=== PATIENT | female | born 1980 | race American Indian/Alaskan Native ===

== ENCOUNTER 2017-04-27 06:10 | Day surgery (SDC) | payer OTHER ==
--- NOTE | 2017-04-26 13:30 | History and Physical Report ---
History of Present Illness Date of examination: 04/25/17 Date of admission: 04/27/2017 History of present illness: Patient has been reassessed/reevaluate. H&P has been reviewed. No interval changes. This is a 36 years old female who presents with history cervical incompentence presents for cervical cerclage placement Vital Signs Height: 64.0 in. Weight (lb): 158 BMI: 27.2 Pre- Weight: 158 BP: 120/ 60 mm Hg Menstrual History Regularity: regular Menses every: 28 days Duration: 5 LMP: 01/02/2017 LMP reliability: month known LMP character: normal test type: urine test Date: 03/30/2017 BC at conception: none Planned ? no EDC Calculations LMP: 10/09/2017 EDC Confirmation: 10/30/2017 Past History : 5 Term Births: 1 Premature Births: 1 Living Children: 2 Para: 2 Mult. Births: 0 Prev : 0 Aborta: 2 Elect. Ab: 0 Spont. Ab: 2 Ectopics: 0 # 1 Delivery date: 2004 Weeks Gestation: 12 ? Delivery type: SAB # 2 Delivery date: 12/14/2008 Weeks Gestation: 39 Delivery type: Vaginal Anesthesia type: epidural Delivery location: [facility] Infant Sex: female weight: 2274 Comments: intrauterine growth restriction, shortened cervix # 3 Delivery date: 05/17/2011 Weeks Gestation: 31 Delivery type: Anesthesia type: epidural Delivery location: [facility] Sex: female weight: 3-7 Comments: T - extension of uterine incision breech presentation, incompetent cervix, rupture of membranes # 4 Delivery date: 10/2016 Weeks Gestation: 8 Delivery type: SAB Comments: No D&C done Past Medical History: Incompetent cervix Past Surgical History: (2010) Cervical cerclage (2010) Family History Summary: denies h/o Diabetes or HTN No Family History of Breast Cancer No Family History of Colon Cancer No Family History of Ovarvian Cancer No Family History of DVT/PE on OCP 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 Risk Factors: Smoked Tobacco Use: Never smoker Drug use: no HIV high-risk behavior: low risk Alcohol use: no Past Medical History 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) Cervical cerclage (2010) Abnormal PAP: negative MARY Exposure: negative Infertility: negative Uterine Anomaly: negative Uterine Surgery (not C/S): negative Other Gynecologic Problems: negative Social Hx: Patient is homemaker Infection History Hx of STD: none HIV Risk Eval: low risk Hepatitis B Risk Eval: low risk Genetic History ADVANCED MATERNAL AGE Congenital Heart Defect: Mom: no Dad: no Mishel Disease: Mom: no Dad: no Thalassemia Mom: no Dad: no Neural Tube Defect Mom: no Dad: no Down's Syndrome Mom: no Dad: no Kvng-Sachs Mom: no Dad: no Sickle Cell Disease/Trait Mom: no Dad: no Hemophilia Mom: no Dad: no Muscular Dystrophy Mom: no Dad: no Cystic Fibrosis Mom: no Dad: no Kasi Chorea Mom: no Dad: no Mental Retardation Mom: no Dad: no Fragile X Mom: no Dad: no Other Genetic/Chromosomal Disorder Mom: no Dad: no Child w/other defect Mom: no Dad: no Current Allergies (reviewed today): No known allergies Laboratory Results General Complains of fatigue. Denies fever, chills, sweats, anorexia, weakness, malaise, weight loss and sleep disorder. Complains of pelvic pain. Denies vaginal discharge, incontinence, dysuria, hematuria, urinary frequency, amenorrhea, menorrhagia, abnormal vaginal bleeding, genital sores, decreased libido, painful periods, painful sex, urinary urgency, hot flashes, vaginal dryness, vaginal itching and vaginal odor. CV Denies chest pains, palpitations, syncope, dyspnea on exertion, orthopnea, PND and peripheral edema. Resp Denies cough, dyspnea at rest, excessive sputum, hemoptysis, wheezing and pleurisy. GI Complains of indigestion/heartburn. Denies nausea, vomiting, diarrhea, constipation, change in bowel habits, abdominal pain, melena, hematochezia, jaundice, gas/bloating, dysphagia and odynophagia. Breast Complains of breast pain. Denies left breast lump, right breast lump, nipple discharge, bloody discharge from nipple, abnormal mammogram and breast enlargement. Psych Denies depression, anxiety, irritability and mood swings. Past History Past Medical History: other (See HPI) Past Surgical History: , Other (See HPI) Social history: full code (See HPI) Family history: other (See HPI) Medications and Allergies Allergies Allergy/AdvReac Type Severity Reaction Status Date / Time No Known Allergies Allergy Unverified 04/27/17 07:04 Review of Systems Constitutional: other (See HPI) Exam - Physical Exam Narrative exam: HEENT: normocephalic, no lesions or deformities Neck/Thyroid: supple, thyroid normal Skin no ulcers, xanthomas Chest: respiratory effort normal, clear to auscultation Breasts: skin/areolae normal, no masses, no nipple discharge, no erythema/warmth /tenderness, and axillae normal. 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 No evidence of cystocele or rectocele. Cervix: normal appearance, no lesions, no discharge Uterus: enlarged 14 to 16 weeks in size Adnexae: no masses or tenderness Rectovaginal: exam defered Results - Labs CBC & Chem 7: 04/27/17 06:35 Assessment and Plan - Patient Problems (1) Incompetent cervix in Current Visit: Yes Status: Acute Qualifiers: Trimester: T Plan to address problem: Indications for and description of the procedure given. Questions answered. Patient agrees to proceed with cerclage Discussed the risks of bleeding, infection, possible rupture of membrane, possible damage to bladder and bowel.Indications for and description of the procedure given. Questions answered. Patient agrees to proceed. (2) with 13 completed weeks gestation Current Visit: Yes Status: Acute (3) Advanced maternal age (AMA) in Current Visit: Yes Status: Acute (4) Uterine scar from previous delivery affecting Current Visit: Yes Status: Chronic
[2017-04-27] MEDS: LACTATED RINGERS 1,000 ML IV SCH ×2 (06:35→07:40)
[2017-04-27 06:48] LABS: Hematocrit 33.8 % (30.3-42.9); Hemoglobin 11.6 gm/dl (10.1-14.3)
[2017-04-27] MEDS ORDERED: ZOFRAN IV PRN (07:22)
[2017-04-27] MEDS ORDERED: NARCAN 0.4 MG/1 ML IV PRN (07:22)
--- NOTE | 2017-04-27 07:22 | Anesthesia Day of Surgery ---
Anesthesia Day of Surgery - Day of Surgery Patient Examined: Yes Patient H&P Reviewed: Yes Patient is NPO: Yes
--- NOTE | 2017-04-27 07:22 | Anesthesia Consultation ---
Anesthesia Consult and Med Hx Date of service: 04/27/17 - Airway Anesthetic Teeth Evaluation: Good ROM Head & Neck: Adequate Mental/Hyoid Distance: Adequate Mallampati Class: Class II Intubation Access Assessment: Probably Good - Pre-Operative Health Status ASA Pre-Surgery Classification: ASA2 Proposed Anesthetic Plan: Spinal - Pulmonary Hx Asthma: No COPD: No Hx Pneumonia: No - Cardiovascular System Hx Hypertension: No - Central Nervous System Hx Seizures: No Hx Psychiatric Problems: No - Endocrine Hx Renal Disease: No Hx End Stage Renal Disease: No Hx Hypothyroidism: No Hx Hyperthyroidism: No - Hematic Hx Anemia: No Hx Sickle Cell Disease: No - Other Systems Hx Alcohol Use: No
[2017-04-27] MEDS ORDERED: SODIUM CHLORIDE FLUSH SYRINGE 10 ML IV NR (08:00)
[2017-04-27] MEDS ORDERED: TORADOL IV PRN (08:00)
[2017-04-27] MEDS ORDERED: REGLAN IV ONE (08:00)
[2017-04-27] MEDS ORDERED: PEPCID IV ONE (08:00)
[2017-04-27] MEDS ORDERED: WATER FOR IRRIG STERILE IR ONE (08:09)
--- NOTE | 2017-04-27 08:33 | Operative Report ---
Operative Report Operative Report: Date of procedure: 04/27/2017 Pre-operative diagnosis: Incompetent cervix Post-operative diagnosis: Same Procedure name(s): Tamika cervical cerclage Surgeon: Lj Jones MD Safety Spec: Anesthesia: Spinal EBL: Minimal Complications: None Findings: Cervix approximately 3-1/2-4 cm in length cervix was closed Specimen(s): None Procedure: Patient was brought to the operating room where spinal anesthesia was induced without difficulty. [facility] Patient was prepped and draped in usual sterile manner. Bladder was emptied with a red rubber catheter. Weighted speculum was placed in her vagina. The sugar laboratory assistant retracted the bladder anteriorly. Her cervical exam as noted above. Mersilene tape was used. Starting at 1:00 the first stitch of the cerclage was placed in pursestring fashion. With the knot tied at 1:00 under moderate distress with no evidence of rupture of amniotic sac. A second stitch was placed in similar fashion slightly distal to the first. The cervix was hemostatic nourished menstrual removed. The patient was counseled to recovery room in good condition. Instrument count correct 2.
[2017-04-27 11:23] VITALS: BP 89/59
[2017-04-27] MEDS ORDERED: TYLENOL #3 PO ONE (13:22)
== END 2017-04-27 14:38 | disposition home or self-care (01) ==
LOC: LDOR 06:10 → APU 06:17 → LDOR 14:38
PROVIDERS: ATTEND Obstetrics & Gynecology
DX: N88.3 Incompetence of cervix uteri (principal); Z98.890 Other specified postprocedural states
CPT/HCPCS: 36415; 57700; 85014; 85018; J2765; J7120

== ENCOUNTER 2017-09-29 10:13 | Inpatient (IN) | payer OTHER ==
--- NOTE | 2017-09-29 10:30 | History and Physical Report ---
History of Present Illness Date of examination: 09/29/17 Chief complaint: Patient sent from [facility] for admission d/t elevated b/p and IUGR @ 35+4 weeks History of present illness: EDC Confirmation: 10/30/2017 Past History : 5 Term Births: 1 Premature Births: 1 Living Children: 2 Para: 2 Mult. Births: 0 Prev : 0 Aborta: 2 Elect. Ab: 0 Spont. Ab: 2 Ectopics: 0 # 1 Delivery date: 2004 Weeks Gestation: 12 ? Delivery type: SAB # 2 Delivery date: 12/14/2008 Weeks Gestation: 39 Delivery type: Vaginal Anesthesia type: epidural Delivery location: [facility] Infant Sex: female weight: 2274 Comments: intrauterine growth restriction, shortened cervix # 3 Delivery date: 05/17/2011 Weeks Gestation: 31 Delivery type: Anesthesia type: epidural Delivery location: [facility] Infant Sex: female weight: 3-7 Comments: T - extension of uterine incision breech presentation, incompetent cervix, rupture of membranes # 4 Delivery date: 10/2016 Weeks Gestation: 8 Delivery type: SAB Comments: No D&C done Past Medical History: Incompetent cervix Past Surgical History: (2010) Cervical cerclage (2010) Family History Summary: Reviewed history Last on 11/10/2014 and no changes required:03/30/2017 General Comments - FH: None denies h/o Diabetes of HTN No Family History of Breast Cancer No Family History of Colon Cancer No Family History of Ovarvian Cancer No Family History of DVT/PE on OCP 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 Risk Factors: Smoked Tobacco Use: Never smoker Drug use: no HIV high-risk behavior: low risk Alcohol use: no Past Medical History 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) Cervical cerclage (2010) Abnormal PAP: negative MARY Exposure: negative Infertility: negative Uterine Anomaly: negative Uterine Surgery (not C/S): negative Other Gynecologic Problems: negative Social Hx: Patient is homemaker Infection History Hx of STD: none HIV Risk Eval: low risk Hepatitis B Risk Eval: low risk Genetic History ADVANCED MATERNAL AGE Congenital Heart Defect: Mom: no Dad: no Mishel Disease: Mom: no Dad: no Thalassemia Mom: no Dad: no Neural Tube Defect Mom: no Dad: no Down's Syndrome Mom: no Dad: no Kvng-Sachs Mom: no Dad: no Sickle Cell Disease/Trait Mom: no Dad: no Hemophilia Mom: no Dad: no Muscular Dystrophy Mom: no Dad: no Cystic Fibrosis Mom: no Dad: no [place] Chorea Mom: no Dad: no Mental Retardation Mom: no Dad: no Fragile X Mom: no Dad: no Other Genetic/Chromosomal Disorder Mom: no Dad: no Child w/other defect Mom: no Dad: no Active Medications: IBUPROFEN 800 MG TABS (IBUPROFEN) 1 po q6 hr prn pain DEPO-PROVERA 150 MG/ML IM SUSP (MEDROXYPROGESTERONE ACETATE) 1 IM injection q3 months Current Allergies (reviewed today): No known allergies Past History Past Medical History: other (see HPI) Past Surgical History: other (See HPI) 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 (treated previously) - Obstetrical History Expected Date of Delivery: 10/30/17 Actual Gestation: 35 Week(s) 4 Day(s) : 5 Para: 2 Hx # Term Pregnancies: 1 Number of Pregnancies: 1 Spontaneous Abortions: 2 Induced : 0 Number of Living Children: 2 Medications and Allergies Allergies Allergy/AdvReac Type Severity Reaction Status Date / Time No Known Allergies Allergy Verified 09/29/17 11:12 Review of Systems All systems: negative (No ISSA, visual changes or epigastric pain.) - Physical Exam Breasts: Positive: normal Cardiovascular: Regular rate Lungs: Positive: Clear to auscultation, Normal air movement Abdomen: Positive: normal appearance, soft, normal bowel sounds Genitourinary (Female): Positive: normal external genitalia, normal perenium Vagina: Positive: normal moisture Uterus: Positive: normal size, normal contour Extremities: Positive: edema (1+ pitting edema bilaterally lower extremities.) Deep Tendon Reflex Grade: Normal +2 - Obstetrical FHR: auscultation normal, category 1 Uterine Contraction Monitor Mode: External Results Result Diagrams: 09/29/17 12:14 All other labs normal. Assessment and Plan 37 y/o @ 35+4 weeks admitted for monitoring, pre-e labs, steroids and 24h urine urine. Admission orders in EMR. Patient denies ISSA, visual changes or epigastric. All questions addressed, patient verbalized understanding. - Patient Problems (1) 35 weeks gestation of Current Visit: Yes Status: Acute (2) Exposure to syphilis Current Visit: Yes Status: Chronic Plan to address problem: treated previously (3) Previous section Current Visit: Yes Status: Acute (4) Advanced maternal age (AMA) in Current Visit: No Status: Acute (5) Elevated blood pressure reading Current Visit: Yes Status: Acute Plan to address problem: 24h urine Monitor b/p's monitor for s/s pre-e pre-e labs steroids for lung maturity (6) IUGR (intrauterine growth restriction) Current Visit: Yes Status: Acute Plan to address problem: Continuous EFM
[2017-09-29] MEDS ORDERED: MYLICON PO PRN (10:43)
[2017-09-29] MEDS ORDERED: COLACE PO PRN (10:43)
[2017-09-29] MEDS ORDERED: TYLENOL PO PRN (10:43)
[2017-09-29] MEDS ORDERED: MILK OF MAGNESIA PO PRN (10:43)
[2017-09-29] MEDS ORDERED: ZOFRAN IV PRN (10:43)
[2017-09-29] MEDS ORDERED: CELESTONE SOLUSPAN IM SCH (12:00)
[2017-09-29 12:08] LABS: Bacteria,Urine 3+ /HPF (Negative); Granular Casts,Urine 3 /LPF; Mucus,Urine 3+ /HPF
[2017-09-29 12:10] LABS: Bilirubin,Urine NEG (Negative); Blood,Urine NEG (Negative); Color,Urine Amber (Yellow); Urobilinogen,Urine < 2.0 mg/dL (<2.0)
[2017-09-29 12:11] LABS: Protein,Urine >500 mg/dL (Negative)
[2017-09-29 12:39] LABS: Basophils % (Auto) 0.4 % (0.0-1.8); Eosinophils # (Auto) 0.2 K/mm3 (0.0-0.4); Eosinophils % (Auto) 2.1 % (0.0-4.3); Hematocrit 36.5 % (30.3-42.9); Hemoglobin 11.9 gm/dl (10.1-14.3); Lymphocytes # (Auto) 1.4 K/mm3 (1.2-5.4); Lymphocytes % (Auto) 18.6 % (13.4-35.0); Mean Corpuscular HGB Conc 33 % (30-34); Mean Corpuscular Hemoglobin 30 pg (28-32); Mean Corpuscular Volume 90 fl (79-97); Monocytes # (Auto) 0.5 K/mm3 (0.0-0.8); Platelet Count 188 K/mm3 (140-440); Red Blood Count 4.04 M/mm3 (3.65-5.03); Red Cell Distribution Width 15.9 % (13.2-15.2)
[2017-09-29 13:15] LABS: Uric Acid 6.9 mg/dL (3.5-7.6)
[2017-09-29 13:16] LABS: Alanine Aminotransferase 19 units/L (7-56); Albumin 2.7 g/dL (3.9-5); BUN/Creatinine Ratio 12; Blood Urea Nitrogen 7 mg/dL (7-17); Calcium 8.7 mg/dL (8.4-10.2); Hemolysis Index 4
[2017-09-29] MEDS ORDERED: NORMOSOL-R PH 7.4 1,000 ML IV ONE (18:33)
[2017-09-29] MEDS ORDERED: GUAIFENESIN DM SYRUP PO PRN (18:54)
[2017-09-29] MEDS: NORMOSOL-R PH 7.4 1,000 ML IV SCH (21:21)
[2017-09-29] MEDS: AMBIEN PO PRN (21:37)
[2017-09-30] MEDS: NORMOSOL-R PH 7.4 1,000 ML IV SCH ×3 (03:56→23:55)
[2017-09-30] MEDS ORDERED: DEEP SEA NS PRN (08:01)
--- NOTE | 2017-09-30 09:32 | Progress Note ---
Assessment and Plan - Patient Problems (1) 35 weeks gestation of Current Visit: Yes Status: Acute (2) Elevated blood pressure reading Current Visit: Yes Status: Acute Plan to address problem: 24hr urine will be completed at 11a [facility] consulted (3) IUGR (intrauterine growth restriction) Current Visit: Yes Status: Acute Plan to address problem: Patient states last US revealed nml EFW. Will attempt to obtain records from [facility] (4) Previous section Current Visit: Yes Status: Acute Plan to address problem: Agrees to repeat c/s (5) Exposure to syphilis Current Visit: Yes Status: Chronic Plan to address problem: Treated 2007, RPR titer 1:1 on 09/15/2017, stable thru , no evidence of re-infection Will notify Peds (6) Advanced maternal age (AMA) in Current Visit: No Status: Acute (7) Incompetent cervix in Current Visit: No Status: Acute Plan to address problem: Will remove with delivery (8) Sterilization Current Visit: Yes Status: Acute Plan to address problem: Consent on chart Subjective - Subjective Date of service: 09/30/17 Principal diagnosis: IUP@35 5/7wga, elevated BP's, ?IUGR Interval history: C/o mild frontal ISSA and nasal congestion, no visual changes or RUQ pain, she has not felt baby move this am, she just finished eating, no UC's, bleeding or leaking of fluid Patient reports: no loss of fluid, no vaginal bleeding, no movement normal , no contractions Objective - Vital Signs Vital Signs: Vital Signs - 12hr 09/29/17 09/29/17 09/29/17 21:36 21:37 22:05 Temperature Pulse Rate 71 74 Respiratory 18 Rate Blood Pressure 157/84 126/88 O2 Sat by Pulse Oximetry 09/29/17 09/29/17 09/29/17 22:35 22:39 22:40 Temperature 97.1 F L Pulse Rate 82 81 Respiratory 18 Rate Blood Pressure 170/91 147/87 O2 Sat by Pulse Oximetry 09/29/17 09/29/17 09/30/17 23:05 23:34 00:04 Temperature Pulse Rate 90 85 89 Respiratory Rate Blood Pressure 147/81 143/76 139/83 O2 Sat by Pulse Oximetry 09/30/17 09/30/17 09/30/17 00:34 01:04 01:35 Temperature Pulse Rate 93 H 91 H 93 H Respiratory Rate Blood Pressure 142/83 146/94 157/90 O2 Sat by Pulse Oximetry 09/30/17 09/30/17 09/30/17 02:04 02:34 02:49 Temperature Pulse Rate 89 88 79 Respiratory Rate Blood Pressure 142/85 147/86 131/77 O2 Sat by Pulse 99 Oximetry 09/30/17 09/30/17 09/30/17 02:50 02:54 02:59 Temperature 97.2 F L Pulse Rate 89 101 H Respiratory 16 Rate Blood Pressure O2 Sat by Pulse 99 99 Oximetry 09/30/17 09/30/17 09/30/17 03:04 03:24 03:29 Temperature Pulse Rate 95 H 85 90 Respiratory Rate Blood Pressure O2 Sat by Pulse 98 99 99 Oximetry 09/30/17 09/30/17 09/30/17 03:34 03:39 03:44 Temperature Pulse Rate 95 H 105 H 94 H Respiratory Rate Blood Pressure O2 Sat by Pulse 98 99 98 Oximetry 09/30/17 09/30/17 09/30/17 03:49 03:54 03:59 Temperature Pulse Rate 89 91 H 101 H Respiratory Rate Blood Pressure 132/81 O2 Sat by Pulse 98 98 99 Oximetry 09/30/17 09/30/17 09/30/17 04:04 04:09 04:14 Temperature Pulse Rate 91 H 94 H 89 Respiratory Rate Blood Pressure O2 Sat by Pulse 98 98 99 Oximetry 09/30/17 09/30/17 09/30/17 04:19 04:24 04:29 Temperature Pulse Rate 94 H 89 87 Respiratory Rate Blood Pressure O2 Sat by Pulse 97 98 97 Oximetry 09/30/17 09/30/17 09/30/17 04:34 04:39 04:44 Temperature Pulse Rate 89 89 85 Respiratory Rate Blood Pressure O2 Sat by Pulse 96 97 97 Oximetry 09/30/17 09/30/17 09/30/17 04:49 04:54 04:59 Temperature Pulse Rate 90 89 85 Respiratory Rate Blood Pressure 140/83 O2 Sat by Pulse 97 97 98 Oximetry 09/30/17 09/30/17 09/30/17 05:04 05:09 05:14 Temperature Pulse Rate 83 88 91 H Respiratory Rate Blood Pressure O2 Sat by Pulse 98 97 97 Oximetry 09/30/17 09/30/17 09/30/17 05:19 05:24 05:29 Temperature Pulse Rate 87 85 87 Respiratory Rate Blood Pressure O2 Sat by Pulse 97 97 97 Oximetry 09/30/17 09/30/17 09/30/17 05:34 05:39 05:44 Temperature Pulse Rate 91 H 85 89 Respiratory Rate Blood Pressure O2 Sat by Pulse 97 96 96 Oximetry 09/30/17 09/30/17 09/30/17 05:49 05:50 05:54 Temperature Pulse Rate 88 85 84 Respiratory Rate Blood Pressure 134/68 O2 Sat by Pulse 98 97 Oximetry 09/30/17 09/30/17 09/30/17 05:59 06:04 06:09 Temperature Pulse Rate 80 84 94 H Respiratory Rate Blood Pressure O2 Sat by Pulse 98 98 98 Oximetry 09/30/17 09/30/17 09/30/17 06:26 06:31 06:36 Temperature Pulse Rate 93 H 85 79 Respiratory Rate Blood Pressure O2 Sat by Pulse 91 100 99 Oximetry 09/30/17 09/30/17 09/30/17 06:41 06:46 06:49 Temperature Pulse Rate 81 89 78 Respiratory Rate Blood Pressure 132/72 O2 Sat by Pulse 100 100 Oximetry 09/30/17 09/30/17 09/30/17 06:51 06:56 07:01 Temperature Pulse Rate 84 79 82 Respiratory Rate Blood Pressure O2 Sat by Pulse 98 99 98 Oximetry 09/30/17 09/30/17 09/30/17 07:06 07:11 07:15 Temperature 97.1 F L Pulse Rate 80 80 Respiratory 16 Rate Blood Pressure O2 Sat by Pulse 98 99 Oximetry 09/30/17 09/30/17 09/30/17 07:16 07:21 07:26 Temperature Pulse Rate 89 84 80 Respiratory Rate Blood Pressure O2 Sat by Pulse 99 98 100 Oximetry 09/30/17 09/30/17 09/30/17 07:31 07:49 08:57 Temperature Pulse Rate 72 75 Respiratory Rate Blood Pressure 138/76 O2 Sat by Pulse 100 4 L Oximetry 09/30/17 09/30/17 09/30/17 08:58 09:22 09:23 Temperature Pulse Rate 66 79 88 Respiratory Rate Blood Pressure 140/94 O2 Sat by Pulse 65 L 100 Oximetry 09/30/17 09/30/17 09:27 09:32 Temperature Pulse Rate 89 86 Respiratory Rate Blood Pressure O2 Sat by Pulse 99 99 Oximetry - Exam Breasts: deferred Cardiovascular: Regular rate Lungs: Clear to auscultation, Normal air movement Abdomen: Present: soft. Absent: tenderness Uterus: Absent: tenderness FHR: category 2 Uterine Contraction Monitor Mode: External Extremities: normal Deep Tendon Reflex Grade: Normal +2 - Labs Labs: Abnormal Labs 09/29/17 09/29/17 09/29/17 11:54 12:14 12:14 RDW 15.9 H Seg Neutrophils % 71.9 H Creatinine 0.6 L Lactate Dehydrogenase Total Protein 4.6 L Albumin 2.7 L Ur Specific [place] 1.037 H Urine WBC (Auto) 15.0 H 09/29/17 12:14 RDW Seg Neutrophils % Creatinine Lactate Dehydrogenase 260 H Total Protein Albumin Ur Specific [place] Urine WBC (Auto) Laboratory Results - last 24 hr 09/29/17 09/29/17 09/29/17 11:54 12:13 12:14 WBC 7.4 RBC 4.04 Hgb 11.9 Hct 36.5 MCV 90 MCH 30 MCHC 33 RDW 15.9 H Plt Count 188 Lymph % (Auto) 18.6 [place] % (Auto) 7.0 Eos % (Auto) 2.1 Baso % (Auto) 0.4 Lymph # 1.4 [place] # 0.5 Eos # 0.2 Baso # 0.0 Seg Neutrophils % 71.9 H Seg Neutrophils # 5.3 Sodium Potassium Chloride Carbon Dioxide Anion Gap BUN Creatinine Estimated GFR BUN/Creatinine Ratio Glucose Uric Acid Calcium Total Bilirubin AST ALT Alkaline Phosphatase Lactate Dehydrogenase Total Protein Albumin Albumin/Globulin Ratio Urine Color [place] Urine Turbidity Clear Urine pH 5.0 Ur Specific [place] 1.037 H Urine Protein >500 Urine Glucose (UA) 50 Urine Ketones Tr Urine Blood Neg Urine Nitrite Neg Ur Reducing Substances Not Reportable Urine Bilirubin Neg Urine Ictotest Not Reportable Urine Urobilinogen < 2.0 Ur Leukocyte Esterase Neg Urine WBC (Auto) 15.0 H Urine RBC (Auto) 10.0 U Epithel Cells (Auto) 9.0 Urine Bacteria (Auto) 3+ Ur Transition Epith Cell 1 Granular Casts 3 Urine Mucus 3+ Blood Type B POSITIVE Antibody Screen Negative 09/29/17 09/29/17 12:14 12:14 WBC RBC Hgb Hct MCV MCH MCHC RDW Plt Count Lymph % (Auto) [place] % (Auto) Eos % (Auto) Baso % (Auto) Lymph # [place] # Eos # Baso # Seg Neutrophils % Seg Neutrophils # Sodium 140 Potassium 4.2 Chloride 103.2 Carbon Dioxide 23 Anion Gap 18 BUN 7 Creatinine 0.6 L Estimated GFR > 60 BUN/Creatinine Ratio 12 Glucose 88 Uric Acid 6.9 Calcium 8.7 Total Bilirubin 0.20 AST 30 ALT 19 Alkaline Phosphatase 124 Lactate Dehydrogenase 260 H Total Protein 4.6 L Albumin 2.7 L Albumin/Globulin Ratio 1.4 Urine Color Urine Turbidity Urine pH Ur Specific [place] Urine Protein Urine Glucose (UA) Urine Ketones Urine Blood Urine Nitrite Ur Reducing Substances Urine Bilirubin Urine Ictotest Urine Urobilinogen Ur Leukocyte Esterase Urine WBC (Auto) Urine RBC (Auto) U Epithel Cells (Auto) Urine Bacteria (Auto) Ur Transition Epith Cell Granular Casts Urine Mucus Blood Type Antibody Screen
[2017-09-30] MEDS ORDERED: PRENATAL VITAMIN PO SCH (10:00)
--- NOTE | 2017-09-30 11:00 | Consultation ---
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) - Obstetrical History : 5 Medications and Allergies Allergies Allergy/AdvReac Type Severity Reaction Status Date / Time No Known Allergies Allergy Verified 09/29/17 11:12 Home Medications Medication Instructions Recorded Confirmed Last Taken Type Pnv,Calcium 72/Iron/Folic Acid 1 tab PO QDAY 09/29/17 09/29/17 09/28/17 History [Pnv Plus Multivit Tab] Active Meds: Active Medications Acetaminophen (Tylenol) 650 mg PO Q4H PRN PRN Reason: Pain MILD(1-3)/Fever >100.5/ISSA Last Admin: 09/29/17 21:37 Dose: 650 mg Docusate Sodium (Colace) 100 mg PO Q12H PRN PRN Reason: Constipation Guaifenesin (Guaifenesin Dm Syrup) 20 ml PO Q4H PRN PRN Reason: Cough Last Admin: 09/29/17 20:07 Dose: 20 ml Parenteral Electrolytes (Normosol-R Ph 7.4) 1,000 mls @ 125 mls/hr IV DIRECT ROBLES Last Admin: 09/30/17 03:56 Dose: 125 mls/hr Magnesium Hydroxide (Milk Of Magnesia) 30 ml PO QHS PRN PRN Reason: Laxative Effect Multivitamins/Iron/Calcium ( Vitamin) 1 each PO QDAY ROBLSE Ondansetron HCl (Zofran) 4 mg IV Q6H PRN PRN Reason: Nausea And Vomiting Simethicone (Mylicon) 80 mg PO Q6H PRN PRN Reason: Gas pain Sodium Chloride (Deep Sea) 1 spray NS PRN PRN PRN Reason: Dry Nasal Passages Last Admin: 09/30/17 08:34 Dose: 1 spray Zolpidem Tartrate (Ambien) 10 mg PO ONCE PRN PRN Reason: Sleep Last Admin: 09/29/17 21:37 Dose: 10 mg - Vital Signs Vital signs: Vital Signs Pulse Pulse Ox 91 H 100 09/29/17 10:39 09/29/17 10:39 Temp Pulse Resp BP Pulse Ox 97.1 F L 105 H 16 135/84 100 09/30/17 07:15 09/30/17 11:02 09/30/17 07:15 09/30/17 10:49 09/30/17 11:02 Results Result Diagrams: 09/29/17 12:14 09/29/17 12:14 Abnormal lab results 09/29/17 09/29/17 09/29/17 Range/Units 11:54 12:14 12:14 RDW 15.9 H (13.2-15.2) % Seg Neutrophils % 71.9 H (40.0-70.0) % Creatinine 0.6 L (0.7-1.2) mg/dL Lactate Dehydrogenase (91-180) units/L Total Protein 4.6 L (6.3-8.2) g/dL Albumin 2.7 L (3.9-5) g/dL Ur Specific [place] 1.037 H (1.003-1.030) Urine WBC (Auto) 15.0 H (0.0-6.0) /HPF 09/29/17 Range/Units 12:14 RDW (13.2-15.2) % Seg Neutrophils % (40.0-70.0) % Creatinine (0.7-1.2) mg/dL Lactate Dehydrogenase 260 H (91-180) units/L Total Protein (6.3-8.2) g/dL Albumin (3.9-5) g/dL Ur Specific [place] (1.003-1.030) Urine WBC (Auto) (0.0-6.0) /HPF All other labs normal. Assessment and Plan Pt seen by [facility] Full consult on chart
--- NOTE | 2017-09-30 12:43 | Ultrasound Report ---
BIOPHYSICAL PROFILE: 09/30/17 CLINICAL: Well [facility] FINDINGS: The biophysical profile was scored as followin - breathing movements 2 - movements 2 - posture and tone 2 - Qualitative amniotic fluid volume 8 - TOTAL SCORE OF POSSIBLE 8 Heart Rate (bpm) = 146 IMPRESSION: Normal study
--- NOTE | 2017-09-30 12:47 | Ultrasound Report ---
UMBILICAL CORD DOPPLER: 09/30/17 CLINICAL: IUGR. 35 weeks, 5 days. S/D RATIO 1. Free loop S/D ratio 2.01 2. Free loop S/D ratio 2.43 3. Free loop S/D ratio 2.42 S/D Ratio Average: 2.29 Normal persistent waveform RI (Resistive Index) 1. Free loop RI: 0.50 2. Free loop RI: 0.59 3. Free loop RI: 0.59 RI Average: 0.56 Normal persistent waveform Heart Rate 138 BPM IMPRESSION: Normal study.
--- NOTE | 2017-09-30 12:49 | Ultrasound Report ---
OB ULTRASOUND LIMITED: 09/30/17 CLINICAL: Check amniotic fluid. FINDINGS: Gestation: [place]te Position: Cephalic. Amniotic Fluid: Decreased AMELIE = 5.3 cm Heart Rate: 138 BPM IMPRESSION: Single live intrauterine fetus at 35 weeks, 5 daysbased on clinical dating. Decreased amniotic fluid.
[2017-09-30] MEDS ORDERED: CELESTONE SOLUSPAN IM ONE (13:00)
[2017-09-30 19:19] LABS: Basophils % (Auto) 0.3 % (0.0-1.8); Hematocrit 37.7 % (30.3-42.9); Hemoglobin 12.5 gm/dl (10.1-14.3); Lymphocytes # (Auto) 0.8 K/mm3 (1.2-5.4); Mean Corpuscular HGB Conc 33 % (30-34); Mean Corpuscular Hemoglobin 30 pg (28-32); Mean Corpuscular Volume 89 fl (79-97); Monocytes # (Auto) 0.2 K/mm3 (0.0-0.8); Monocytes % (Auto) 2.3 % (0.0-7.3); Platelet Count 202 K/mm3 (140-440); Red Blood Count 4.22 M/mm3 (3.65-5.03); Red Cell Distribution Width 15.9 % (13.2-15.2)
[2017-09-30] MEDS: AMBIEN PO PRN (21:36)
--- NOTE | 2017-10-01 08:12 | Progress Note ---
Assessment and Plan - Patient Problems (1) 35 weeks gestation of Current Visit: Yes Status: Acute (2) Pre-eclampsia Current Visit: Yes Status: Acute Plan to address problem: With IUGR, will proceed with delivery. Diagnosis explained, plan of care discussed, questions were encouraged and answered, she voiced understanding and desires to proceed with c/s today (3) Previous section Current Visit: Yes Status: Acute (4) Exposure to syphilis Current Visit: Yes Status: Chronic (5) Advanced maternal age (AMA) in Current Visit: No Status: Acute (6) Incompetent cervix in Current Visit: No Status: Acute Plan to address problem: Will remove with c/s (7) Sterilization Current Visit: Yes Status: Acute Plan to address problem: She now declines sterilization Subjective - Subjective Date of service: 10/01/17 Principal diagnosis: IUP@35 6/7wga, elevated BP's, ?IUGR Interval history: Resting in bed, no complaints, elevated BP's occurred when she was lying on the BP cuff, Patient reports: no loss of fluid, no vaginal bleeding, no movement normal , no contractions Objective - Vital Signs Vital Signs: Vital Signs - 12hr 09/30/17 09/30/17 09/30/17 20:22 20:23 20:50 Temperature 97.7 F Pulse Rate 95 H 95 H 96 H Respiratory 18 Rate Blood Pressure 155/87 183/82 Blood Pressure 155/87 [Right] O2 Sat by Pulse Oximetry 09/30/17 09/30/17 09/30/17 21:39 21:49 22:49 Temperature Pulse Rate 89 94 H 93 H Respiratory Rate Blood Pressure 137/88 146/88 138/87 Blood Pressure [Right] O2 Sat by Pulse Oximetry 09/30/17 09/30/17 09/30/17 23:49 23:55 23:58 Temperature 98.7 F Pulse Rate 97 H 106 H Respiratory 20 Rate Blood Pressure 157/88 Blood Pressure [Right] O2 Sat by Pulse 100 Oximetry 10/01/17 10/01/17 10/01/17 00:03 00:08 00:13 Temperature Pulse Rate 105 H 93 H 96 H Respiratory Rate Blood Pressure Blood Pressure [Right] O2 Sat by Pulse 100 97 98 Oximetry 10/01/17 10/01/17 10/01/17 00:18 00:23 00:28 Temperature Pulse Rate 95 H 94 H 102 H Respiratory Rate Blood Pressure Blood Pressure [Right] O2 Sat by Pulse 97 98 98 Oximetry 10/01/17 10/01/17 10/01/17 00:33 00:38 00:43 Temperature Pulse Rate 94 H 89 94 H Respiratory Rate Blood Pressure Blood Pressure [Right] O2 Sat by Pulse 97 97 97 Oximetry 10/01/17 10/01/17 10/01/17 00:48 00:49 00:53 Temperature Pulse Rate 96 H 115 H 93 H Respiratory Rate Blood Pressure 134/99 Blood Pressure [Right] O2 Sat by Pulse 96 97 Oximetry 10/01/17 10/01/17 10/01/17 00:58 01:03 01:08 Temperature Pulse Rate 95 H 91 H 100 H Respiratory Rate Blood Pressure Blood Pressure [Right] O2 Sat by Pulse 97 98 97 Oximetry 10/01/17 10/01/17 10/01/17 01:13 01:18 01:23 Temperature Pulse Rate 97 H 92 H 92 H Respiratory Rate Blood Pressure Blood Pressure [Right] O2 Sat by Pulse 97 97 97 Oximetry 10/01/17 10/01/17 10/01/17 01:28 01:33 01:38 Temperature Pulse Rate 101 H 91 H 99 H Respiratory Rate Blood Pressure Blood Pressure [Right] O2 Sat by Pulse 96 97 98 Oximetry 10/01/17 10/01/17 10/01/17 01:43 01:48 01:49 Temperature Pulse Rate 94 H 89 95 H Respiratory Rate Blood Pressure 138/71 Blood Pressure [Right] O2 Sat by Pulse 98 100 Oximetry 10/01/17 10/01/17 10/01/17 01:53 01:58 02:03 Temperature Pulse Rate 95 H 90 91 H Respiratory Rate Blood Pressure Blood Pressure [Right] O2 Sat by Pulse 100 100 100 Oximetry 10/01/17 10/01/17 10/01/17 02:08 02:13 02:18 Temperature Pulse Rate 95 H 101 H 98 H Respiratory Rate Blood Pressure Blood Pressure [Right] O2 Sat by Pulse 98 98 97 Oximetry 10/01/17 10/01/17 10/01/17 02:23 02:28 02:33 Temperature Pulse Rate 100 H 98 H 95 H Respiratory Rate Blood Pressure Blood Pressure [Right] O2 Sat by Pulse 99 98 98 Oximetry 10/01/17 10/01/17 10/01/17 02:38 02:49 03:16 Temperature 97.7 F Pulse Rate 99 H 90 Respiratory 18 Rate Blood Pressure 127/74 Blood Pressure [Right] O2 Sat by Pulse 99 Oximetry 10/01/17 10/01/17 10/01/17 03:50 03:55 04:00 Temperature Pulse Rate 110 H 89 87 Respiratory Rate Blood Pressure Blood Pressure [Right] O2 Sat by Pulse 94 99 99 Oximetry 10/01/17 10/01/17 10/01/17 04:05 04:10 04:15 Temperature Pulse Rate 95 H 87 90 Respiratory Rate Blood Pressure Blood Pressure [Right] O2 Sat by Pulse 99 98 98 Oximetry 10/01/17 10/01/17 10/01/17 04:20 04:25 04:30 Temperature Pulse Rate 89 89 88 Respiratory Rate Blood Pressure Blood Pressure [Right] O2 Sat by Pulse 98 98 98 Oximetry 10/01/17 10/01/17 10/01/17 04:35 04:40 04:45 Temperature Pulse Rate 88 89 103 H Respiratory Rate Blood Pressure Blood Pressure [Right] O2 Sat by Pulse 97 98 99 Oximetry 10/01/17 10/01/17 10/01/17 04:49 04:50 04:55 Temperature Pulse Rate 81 87 85 Respiratory Rate Blood Pressure 127/67 Blood Pressure [Right] O2 Sat by Pulse 98 98 Oximetry 10/01/17 10/01/17 10/01/17 05:00 05:05 05:10 Temperature Pulse Rate 80 85 84 Respiratory Rate Blood Pressure Blood Pressure [Right] O2 Sat by Pulse 99 98 98 Oximetry 10/01/17 10/01/17 10/01/17 05:15 05:20 05:25 Temperature Pulse Rate 85 88 91 H Respiratory Rate Blood Pressure Blood Pressure [Right] O2 Sat by Pulse 99 98 100 Oximetry 10/01/17 10/01/17 10/01/17 05:30 05:35 05:56 Temperature Pulse Rate 94 H 92 H 85 Respiratory Rate Blood Pressure Blood Pressure [Right] O2 Sat by Pulse 100 100 100 Oximetry 10/01/17 10/01/17 10/01/17 06:00 06:01 06:06 Temperature Pulse Rate 91 H 91 H 87 Respiratory Rate Blood Pressure Blood Pressure [Right] O2 Sat by Pulse 92 92 99 Oximetry 10/01/17 10/01/17 10/01/17 06:11 06:16 06:20 Temperature Pulse Rate 86 124 H 81 Respiratory Rate Blood Pressure Blood Pressure [Right] O2 Sat by Pulse 99 99 83 L Oximetry 10/01/17 10/01/17 10/01/17 06:21 06:26 06:31 Temperature Pulse Rate 111 H 85 92 H Respiratory Rate Blood Pressure Blood Pressure [Right] O2 Sat by Pulse 100 100 100 Oximetry 10/01/17 10/01/17 10/01/17 06:36 06:40 06:41 Temperature Pulse Rate 88 85 90 Respiratory Rate Blood Pressure Blood Pressure [Right] O2 Sat by Pulse 98 90 100 Oximetry 10/01/17 10/01/17 10/01/17 06:46 06:49 06:51 Temperature Pulse Rate 104 H 82 83 Respiratory Rate Blood Pressure 142/89 Blood Pressure [Right] O2 Sat by Pulse 100 100 Oximetry 10/01/17 10/01/17 10/01/17 06:56 07:01 07:06 Temperature Pulse Rate 85 86 90 Respiratory Rate Blood Pressure Blood Pressure [Right] O2 Sat by Pulse 100 100 100 Oximetry 10/01/17 10/01/17 10/01/17 07:11 07:33 07:38 Temperature Pulse Rate 95 H 88 87 Respiratory Rate Blood Pressure Blood Pressure [Right] O2 Sat by Pulse 99 99 98 Oximetry 10/01/17 10/01/17 10/01/17 07:43 07:48 07:50 Temperature Pulse Rate 81 90 81 Respiratory Rate Blood Pressure 164/79 Blood Pressure [Right] O2 Sat by Pulse 100 99 Oximetry 10/01/17 10/01/17 10/01/17 07:53 07:58 08:03 Temperature Pulse Rate 86 85 86 Respiratory Rate Blood Pressure Blood Pressure [Right] O2 Sat by Pulse 100 99 99 Oximetry 10/01/17 10/01/17 08:06 08:08 Temperature Pulse Rate 78 86 Respiratory Rate Blood Pressure 138/65 Blood Pressure [Right] O2 Sat by Pulse 100 Oximetry - Exam Breasts: deferred Lungs: Normal air movement FHR: category 1 Uterine Contraction Monitor Mode: External - Labs Labs: Abnormal Labs 09/29/17 09/29/17 09/29/17 11:54 12:14 12:14 RDW 15.9 H Lymph % (Auto) Lymph # Seg Neutrophils % 71.9 H Seg Neutrophils # Creatinine 0.6 L Lactate Dehydrogenase Total Protein 4.6 L Albumin 2.7 L Ur Specific [place] 1.037 H Urine WBC (Auto) 15.0 H Ur Total Protein 24 Hr Urine Total Protein 09/29/17 09/29/17 09/30/17 12:14 17:53 19:09 RDW 15.9 H Lymph % (Auto) 9.0 L Lymph # 0.8 L Seg Neutrophils % 88.4 H Seg Neutrophils # 7.9 H Creatinine Lactate Dehydrogenase 260 H Total Protein Albumin Ur Specific [place] Urine WBC (Auto) Ur Total Protein 24 Hr 72703.50 H Urine Total Protein 451 H Laboratory Results - last 24 hr 09/29/17 09/30/17 17:53 19:09 WBC 9.0 RBC 4.22 Hgb 12.5 Hct 37.7 MCV 89 MCH 30 MCHC 33 RDW 15.9 H Plt Count 202 Lymph % (Auto) 9.0 L [place] % (Auto) 2.3 Eos % (Auto) 0.0 Baso % (Auto) 0.3 Lymph # 0.8 L [place] # 0.2 Eos # 0.0 Baso # 0.0 Seg Neutrophils % 88.4 H Seg Neutrophils # 7.9 H Urine Total Volume 2550 Ur Total Protein 24 Hr 02584.50 H Urine Total Protein 451 H
--- NOTE | 2017-10-01 11:52 | Anesthesia Consultation ---
Anesthesia Consult and Med Hx Date of service: 10/01/17 - Airway Anesthetic Teeth Evaluation: Good ROM Head & Neck: Adequate Mental/Hyoid Distance: Adequate Mallampati Class: Class III Intubation Access Assessment: Possibly Difficult - Pulmonary Exam CTA: Yes - Cardiac Exam Cardiac Exam: RRR - Pre-Operative Health Status ASA Pre-Surgery Classification: ASA3 Proposed Anesthetic Plan: Epidural, Spinal - Pulmonary Hx Smoking: No Hx Asthma: No COPD: No Hx Pneumonia: No - Cardiovascular System Hx Hypertension: Yes (appears to be PIH) - Central Nervous System Hx Seizures: No Hx Psychiatric Problems: No - Endocrine Hx Renal Disease: No Hx End Stage Renal Disease: No Hx Hypothyroidism: No Hx Hyperthyroidism: No - Hematic Hx Anemia: No Hx Sickle Cell Disease: No - Other Systems Hx Alcohol Use: No
--- NOTE | 2017-10-01 11:52 | Anesthesia Day of Surgery ---
Anesthesia Day of Surgery - Day of Surgery Patient Examined: Yes Patient H&P Reviewed: Yes Patient is NPO: Yes
[2017-10-01] MEDS ORDERED: NORMOSOL-R PH 7.4 1,000 ML IV SCH (12:00)
[2017-10-01] MEDS ORDERED: REGLAN IV ONE (12:00)
[2017-10-01] MEDS ORDERED: PEPCID IV ONE (12:00)
[2017-10-01] MEDS ORDERED: PITOCin/NS 20 UNIT/1000ML DRIP 20 UNITS/1,000 ML BAG IV SCH ×2 (12:00→16:51)
[2017-10-01] MEDS ORDERED: BICITRA PO ONE (12:00)
[2017-10-01] MEDS ORDERED: ANCEF/STERILE WATER 2 GM/20 ML IV NR (13:00)
[2017-10-01] MEDS ORDERED: SUBLIMAZE ONE (13:18)
[2017-10-01] MEDS ORDERED: ASTRAMORPH PF 10MG/10ML ONE (13:19)
[2017-10-01] MEDS ORDERED: NACL 0.9% IR ONE (14:00)
[2017-10-01] MEDS ORDERED: WATER FOR IRRIG STERILE IR ONE (14:00)
[2017-10-01] MEDS ORDERED: NACL 0.9% 1000 ML 1,000 ML ONE (14:54)
[2017-10-01] MEDS ORDERED: MAGNESIUM SULFATE 4GM/100ML 4 GM/100 ML BAG IV ONE ×2 (14:54→16:51)
[2017-10-01] MEDS ORDERED: MAGNESIUM SULFATE 40GM/1000ML 40 GM/1,000 ML BAG IV ONE (14:54)
--- NOTE | 2017-10-01 15:44 | Operative Report ---
Operative Report Operative Report: Date: 10/01/2017 Preoperative diagnosis: 1. Intrauterine at 35 weeks 2. Preeclampsia 3. Intrauterine growth restriction 4. Previous delivery with T extension 5. Cervical insufficiency with cerclage placement 6. History of syphilis Postoperative diagnosis: 1. Intrauterine at 35 weeks 2. Preeclampsia 3. Intrauterine growth restriction 4. Previous delivery with T extension 5. Cervical insufficiency with cerclage placement 6. History of syphilis Procedure: 1. Removal of cervical cerclage 2. Low uterine transverse incision for delivery 3. Lysis of adhesions Surgeon: La Nena Nation MD Cardiac Care Unit Nurse: Ebony Meza Anesthesia: Combined spinal epidural Anesthesiologist: Berta Hall M.D. Estimated blood loss: 500 mL Urine out: [] mL Findings: Live born male . Weight 5 lbs. 0 oz. Apgars 8 at 1 minute and 8 at 9 minutes. Uterus small right lower segment uterine fibroid, tubes normal, ovaries normal. Procedure: After risk, benefits, complications, consequences and alternatives for this procedure were discussed with patient and consents were reviewed and signed, she was taken to the OR where combined spinal epidural anesthesia was placed. She was then placed in Nav stirrups and a operative speculum was placed in the vagina. Both cerclage stitches were removed without any complications. She was then taken out of the Nav stirrups. She was placed in the left lateral tilt position, and prepped and draped in the usual sterile fashion. Timeout was performed, and an appropriate level of anesthesia was noted, a Pfannenstiel incision was made and extended to the fascia which was incised and extended in the lateral directions. The overlying fascia was sharply dissected away from the underlying rectus muscles in the superior and inferior directions. The midline was entered bluntly. The dense adhesion of the uterus anterior abdominal wall was released. The vesicouterine fold was incised and with blunt dissection the bladder flap was created. A transverse incision was made in the lower uterine segment and extended in superiolateral direction with finger fractionation. A small amount of clear fluid was noted. The was delivered from cephalic position. Mouth and nose were bulb suctioned. Spontaneous cry and excellent tone were noted. Cord was doubly clamped and cut. The infant was given to /resuscitation team present. The placenta was manually extracted. The uterus was then exteriorized and cleared of any further products of conception or placental tissue. The incision was reapproximated using 0 Vicryl in a running interlocking stitch. Further suture 0 Vicryl and interrupted [id number] stitches were placed for hemostasis. Once hemostasis was noted, the uterus was allowed back into the pelvic cavity. The pelvis was irrigated with warm normal saline. Again hemostasis was noted . Tisseel and Surgicel applied for further hemostasis. Interceed was then placed to prevent adhesions. Then attention was turned to the rectus muscles. The rectus muscles reapproximated using 0 Vicryl in a simple interrupted stitch x one. Once hemostasis was noted, the fascia was reapproximated using 0 Vicryl running stitch fashion. Once hemostasis was noted skin incision was reapproximated using 4-0 Vicryl on a Slim needle in a subcuticular manner. Counts were correct 3. Patient tolerated procedure well state recovery room in stable condition.
[2017-10-01] MEDS ORDERED: ZOFRAN IV PRN (16:51)
[2017-10-01] MEDS ORDERED: NARCAN 0.4 MG/1 ML IV PRN (16:51)
[2017-10-01] MEDS ORDERED: LACTATED RINGERS 1,000 ML IV SCH (16:51)
[2017-10-01] MEDS ORDERED: PHENERGAN PR PRN (16:51)
[2017-10-01] MEDS ORDERED: MYLICON PO PRN (16:51)
[2017-10-01] MEDS ORDERED: LANSINOH TP PRN (16:51)
[2017-10-01] MEDS ORDERED: ANCEF/NS 1 GM/50 ML 1 GM/50 ML BAG IV SCH (16:51)
[2017-10-01] MEDS ORDERED: SENOKOT PO PRN (16:51)
[2017-10-01] MEDS ORDERED: MILK OF MAGNESIA PO PRN (16:51)
[2017-10-01] MEDS ORDERED: APRESOLINE IV PRN (16:51)
[2017-10-01] MEDS ORDERED: TYLENOL PO PRN (16:51)
[2017-10-01] MEDS ORDERED: D5LR 1,000 ML IV SCH (16:51)
[2017-10-01] MEDS ORDERED: TYLENOL PR PRN (16:51)
[2017-10-01] MEDS ORDERED: SODIUM CHLORIDE FLUSH SYRINGE 10 ML IV SCH (16:51)
[2017-10-01] MEDS ORDERED: MORPHINE IV PRN ×2 (16:51→17:12)
[2017-10-01] MEDS ORDERED: TUCKS PAD TP PRN (16:51)
[2017-10-01] MEDS ORDERED: MAGNESIUM SULFATE 40GM/1000ML 40 GM/1,000 ML BAG IV SCH (17:00)
[2017-10-01] MEDS: TORADOL IV PRN ×2 (17:50→23:39)
[2017-10-01] MEDS ORDERED: REGLAN IV PRN (18:11)
[2017-10-01] MEDS ORDERED: NUBAIN IV ONE (19:00)
[2017-10-01] MEDS ORDERED: NACL 0.9% 1000 ML 1,000 ML IV SCH (23:45)
[2017-10-02] MEDS: ceFAZolin 1 GM in NACL 0.9% 20 ML IV SCH ×2 (00:22→08:34)
[2017-10-02 01:20] LABS: Hematocrit 35.3 % (30.3-42.9); Hemoglobin 11.6 gm/dl (10.1-14.3)
[2017-10-02] MEDS ORDERED: BOOSTRIX IM ONE (06:00)
--- NOTE | 2017-10-02 07:33 | Progress Note ---
Assessment and Plan - Patient Problems (1) delivery delivered Onset Date: ~10/01/17 Current Visit: Yes Status: Acute Plan to address problem: pt resting quietly No c/o voiced BP 130/80-70 FF below umb Lochia small Incision D&I H&H stable. Doing well s/p repeat c/s. P: continue pathway Complete 24hr of MGSO4 therapy. Monitor BPs Subjective - Subjective Date of service: 10/02/17 (No c/o voiced) Principal diagnosis: Day # 1 s/p Section Patient reports: voiding normally (marquis), pain well controlled : doing well Objective - Vital Signs Latest vital signs: Vital Signs Temp Pulse Resp BP BP Pulse Ox 10/02/17 06:00 98.6 F 74 18 131/78 10/02/17 04:00 98.6 F 78 16 132/74 10/02/17 00:09 18 10/02/17 00:00 98.6 F 77 16 130/81 10/01/17 23:39 18 10/01/17 20:30 98.6 F 78 16 148/95 10/01/17 19:14 16 10/01/17 18:44 20 10/01/17 18:11 97.6 F 76 20 136/83 97 10/01/17 17:50 18 10/01/17 16:20 97.8 F 68 20 126/86 10/01/17 16:00 97.9 F 76 16 144/88 100 10/01/17 15:30 97.8 F 78 14 154/91 100 10/01/17 15:15 78 14 148/90 100 10/01/17 15:00 78 14 151/98 100 10/01/17 14:55 77 14 147/92 100 10/01/17 14:45 97.7 F 76 12 144/88 100 10/01/17 11:10 111 H 134/75 10/01/17 10:08 94 H 100 10/01/17 10:03 91 H 99 10/01/17 09:58 89 99 10/01/17 09:55 97.8 F 16 10/01/17 09:53 88 99 10/01/17 09:49 100 H 131/75 10/01/17 09:48 94 H 99 10/01/17 09:43 93 H 99 10/01/17 09:38 86 97 10/01/17 09:33 85 100 10/01/17 09:28 87 100 10/01/17 09:23 95 H 99 10/01/17 09:18 91 H 99 10/01/17 09:13 82 98 10/01/17 09:08 92 H 99 10/01/17 09:03 86 99 10/01/17 08:58 76 100 10/01/17 08:53 86 99 10/01/17 08:49 88 147/87 10/01/17 08:48 91 H 100 10/01/17 08:43 92 H 100 10/01/17 08:38 90 100 10/01/17 08:33 85 100 10/01/17 08:28 88 100 10/01/17 08:23 87 100 10/01/17 08:18 86 100 10/01/17 08:13 85 100 10/01/17 08:08 86 100 10/01/17 08:06 78 138/65 10/01/17 08:03 86 99 10/01/17 07:58 85 99 10/01/17 07:53 86 100 10/01/17 07:50 81 164/79 10/01/17 07:48 90 99 10/01/17 07:43 81 100 10/01/17 07:38 87 98 10/01/17 07:33 88 99 Intake and Output 10/01/17 10/02/17 10/02/17 22:59 06:59 14:59 Intake Total 700 300 Output Total 1100 1700 Balance -400 -1400 Intake: IV 200 Oral 200 Intake, Free Water 300 300 Output: Urine 750 1700 Indwelling Catheter 550 1700 Emesis 350 Other: Total, Intake Amount 200 Total, Output Amount 900 800 Estimated Blood Loss 500 - Exam Breasts: Present: normal Cardiovascular: Present: Regular rate Lungs: Present: Clear to auscultation, Normal air movement Abdomen: Present: normal appearance, soft Uterus: Present: normal, fundal height below umbilicus Extremities: Present: normal, edema Deep Tendon Reflex Grade: Normal +2 Incision: Present: normal, dry, intact - Labs Labs: Abnormal lab results 10/01/17 10/02/17 Range/Units 19:34 00:54 Magnesium 4.60 H 5.40 H (1.7-2.3) mg/dL
[2017-10-02] MEDS: MOTRIN PO PRN ×2 (12:40→22:17)
[2017-10-02] MEDS: PERCOCET 5/325 PO PRN ×2 (12:40→22:16)
--- NOTE | 2017-10-03 08:40 | Progress Note ---
Assessment and Plan Patient doing well w/o complaints, with good latch, incision D&I , b/p's 130-140's/70-80's, no ISSA, visual changes or epigastric pain. Continue postop pathway and anticipate d/c home tomorrow if stable. - Patient Problems (1) delivery delivered Onset Date: ~10/01/17 Current Visit: Yes Status: Acute (2) Pre-eclampsia Current Visit: Yes Status: Acute Subjective - Subjective Date of service: 10/03/17 Principal diagnosis: Day # 2 s/p Section; pre-e Interval history: EDC Confirmation: 10/30/2017 Past History : 5 Term Births: 1 Premature Births: 1 Living Children: 2 Para: 2 Mult. Births: 0 Prev : 0 Aborta: 2 Elect. Ab: 0 Spont. Ab: 2 Ectopics: 0 # 1 Delivery date: 2004 Weeks Gestation: 12 ? Delivery type: SAB # 2 Delivery date: 12/14/2008 Weeks Gestation: 39 Delivery type: Vaginal Anesthesia type: epidural Delivery location: [facility] Infant Sex: female weight: 2274 Comments: intrauterine growth restriction, shortened cervix # 3 Delivery date: 05/17/2011 Weeks Gestation: 31 Delivery type: Anesthesia type: epidural Delivery location: [facility] Infant Sex: female weight: 3-7 Comments: T - extension of uterine incision breech presentation, incompetent cervix, rupture of membranes # 4 Delivery date: 10/2016 Weeks Gestation: 8 Delivery type: SAB Comments: No D&C done Past Medical History: Incompetent cervix Past Surgical History: (2010) Cervical cerclage (2010) Family History Summary: Reviewed history Last on 11/10/2014 and no changes required:03/30/2017 General Comments - FH: None denies h/o Diabetes of HTN No Family History of Breast Cancer No Family History of Colon Cancer No Family History of Ovarvian Cancer No Family History of DVT/PE on OCP 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 Risk Factors: Smoked Tobacco Use: Never smoker Drug use: no HIV high-risk behavior: low risk Alcohol use: no Past Medical History 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) Cervical cerclage (2010) Abnormal PAP: negative MARY Exposure: negative Infertility: negative Uterine Anomaly: negative Uterine Surgery (not C/S): negative Other Gynecologic Problems: negative Social Hx: 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 Infection History Hx of STD: none HIV Risk Eval: low risk Hepatitis B Risk Eval: low risk Genetic History ADVANCED MATERNAL AGE Congenital Heart Defect: Mom: no Dad: no Mishel Disease: Mom: no Dad: no Thalassemia Mom: no Dad: no Neural Tube Defect Mom: no Dad: no Down's Syndrome Mom: no Dad: no Kvng-Sachs Mom: no Dad: no Sickle Cell Disease/Trait Mom: no Dad: no Hemophilia Mom: no Dad: no Muscular Dystrophy Mom: no Dad: no Cystic Fibrosis Mom: no Dad: no [place] Chorea Mom: no Dad: no Mental Retardation Mom: no Dad: no Fragile X Mom: no Dad: no Other Genetic/Chromosomal Disorder Mom: no Dad: no Child w/other defect Mom: no Dad: no Active Medications: IBUPROFEN 800 MG TABS (IBUPROFEN) 1 po q6 hr prn pain DEPO-PROVERA 150 MG/ML IM SUSP (MEDROXYPROGESTERONE ACETATE) 1 IM injection q3 months Current Allergies (reviewed today): No known allergies Patient reports: appetite normal, voiding normally, pain well controlled, flatus , ambulating normally, no dizzy ambulation, no nauseated : doing well, nursing well Objective - Vital Signs Latest vital signs: Vital Signs Temp Pulse Resp BP BP Pulse Ox 10/03/17 01:45 80 132/87 100 10/03/17 01:43 84 100 10/02/17 16:46 98.4 F 65 20 136/76 100 10/02/17 12:30 98.4 F 84 18 141/88 99 10/02/17 10:39 98.5 F 87 18 134/86 96 10/02/17 10:15 98.5 F 87 18 134/86 96 Intake and Output 10/02/17 10/03/17 10/03/17 23:59 07:59 15:59 Intake Total 360 Output Total 900 Balance -540 Intake: Oral 360 Output: Urine 900 Void 900 Other: Total, Intake Amount 360 Total, Output Amount 900 - Exam Breasts: Present: normal, Cardiovascular: Present: Regular rate Lungs: Present: Clear to auscultation, Normal air movement Abdomen: Present: normal appearance, soft Vulva: both: normal Uterus: Present: normal, firm, fundal height at umbilicus Extremities: Present: normal Deep Tendon Reflex Grade: Normal +2 Incision: Present: normal, dry, intact - Labs Labs: Abnormal lab results 10/02/17 Range/Units 13:48 Magnesium 4.70 H (1.7-2.3) mg/dL
[2017-10-03] MEDS ORDERED: COLACE PO PRN (10:00)
[2017-10-03] MEDS: MOTRIN PO PRN ×2 (11:01→16:43)
[2017-10-03] MEDS: PERCOCET 5/325 PO PRN ×2 (12:22→18:21)
--- NOTE | 2017-10-03 19:34 | Event Note ---
Date: 10/03/17 BP is higher at this time Will start BP meds at this time.
[2017-10-03] MEDS: NORMODYNE PO SCH (23:10)
[2017-10-04] MEDS: PERCOCET 5/325 PO PRN ×2 (07:41→16:58)
[2017-10-04] MEDS: MOTRIN PO PRN ×2 (07:42→12:39)
--- NOTE | 2017-10-04 08:07 | Progress Note ---
Assessment and Plan Patient doing well, denies ISSA, blurred vision or epigastric pain. lochia scant , incision dry and intact. Patient desires d/c home today. Will continue to observe b/ps since labetalol was started last night. If b/p's nl will d/c this afternoon. patient and s/o aware of plan, all questions addressed. - Patient Problems (1) delivery delivered Onset Date: ~10/01/17 Current Visit: Yes Status: Acute (2) Pre-eclampsia Current Visit: Yes Status: Acute Subjective - Subjective Date of service: 10/04/17 Principal diagnosis: Day # 3 s/p Section; pre-e Interval history: EDC Confirmation: 10/30/2017 Past History : 5 Term Births: 1 Premature Births: 1 Living Children: 2 Para: 2 Mult. Births: 0 Prev : 0 Aborta: 2 Elect. Ab: 0 Spont. Ab: 2 Ectopics: 0 # 1 Delivery date: 2004 Weeks Gestation: 12 ? Delivery type: SAB # 2 Delivery date: 12/14/2008 Weeks Gestation: 39 Delivery type: Vaginal Anesthesia type: epidural Delivery location: [facility] Infant Sex: female weight: 2274 Comments: intrauterine growth restriction, shortened cervix # 3 Delivery date: 05/17/2011 Weeks Gestation: 31 Delivery type: Anesthesia type: epidural Delivery location: [facility] Sex: female weight: 3-7 Comments: T - extension of uterine incision breech presentation, incompetent cervix, rupture of membranes # 4 Delivery date: 10/2016 Weeks Gestation: 8 Delivery type: SAB Comments: No D&C done Past Medical History: Incompetent cervix Past Surgical History: (2010) Cervical cerclage (2010) Family History Summary: Reviewed history Last on 11/10/2014 and no changes required:03/30/2017 General Comments - FH: None denies h/o Diabetes of HTN No Family History of Breast Cancer No Family History of Colon Cancer No Family History of Ovarvian Cancer No Family History of DVT/PE on OCP 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 Risk Factors: Smoked Tobacco Use: Never smoker Drug use: no HIV high-risk behavior: low risk Alcohol use: no Past Medical History Surgery (Non-cloth feeder): (2010) Cervical cerclage (2011) Abnormal PAP: negative MARY Exposure: negative Infertility: negative Uterine Anomaly: negative Uterine Surgery (not C/S): negative Other Gynecologic Problems: negative Social Hx: Patient is homemaker Infection History Hx of STD: none HIV Risk Eval: low risk Hepatitis B Risk Eval: low risk Genetic History ADVANCED MATERNAL AGE Congenital Heart Defect: Mom: no Dad: no Mishel Disease: Mom: no Dad: no Thalassemia Mom: no Dad: no Neural Tube Defect Mom: no Dad: no Down's Syndrome Mom: no Dad: no Kvng-Sachs Mom: no Dad: no Sickle Cell Disease/Trait Mom: no Dad: no Hemophilia Mom: no Dad: no Muscular Dystrophy Mom: no Dad: no Cystic Fibrosis Mom: no Dad: no [place] Chorea Mom: no Dad: no Mental Retardation Mom: no Dad: no Fragile X Mom: no Dad: no Other Genetic/Chromosomal Disorder Mom: no Dad: no Child w/other defect Mom: no Dad: no Active Medications: IBUPROFEN 800 MG TABS (IBUPROFEN) 1 po q6 hr prn pain DEPO-PROVERA 150 MG/ML IM SUSP (MEDROXYPROGESTERONE ACETATE) 1 IM injection q3 months Current Allergies (reviewed today): No known allergies Patient reports: appetite normal, voiding normally, pain well controlled, flatus , ambulating normally, no dizzy ambulation, no nauseated [place]: doing well, nursing well, bottle feeding (breast and bottle feeding, encouraged ) Objective - Vital Signs Latest vital signs: Vital Signs Temp Pulse Resp BP Pulse Ox 10/04/17 00:00 98.4 F 71 18 132/79 10/03/17 16:10 18 150/95 10/03/17 16:05 18 153/94 98 10/03/17 16:00 69 F L 67 18 154/75 99 10/03/17 12:30 98.6 F 62 18 153/82 98 Intake and Output 10/03/17 10/04/17 10/04/17 23:59 07:59 15:59 Intake Total 960 Balance 960 Intake: Oral 480 Intake, Free Water 480 Other: Total, Intake Amount 240 # Voids Void 1 1 - Exam Breasts: Present: normal, Cardiovascular: Present: Regular rate Lungs: Present: Clear to auscultation, Normal air movement Abdomen: Present: normal appearance, soft Vulva: both: normal Uterus: Present: normal, firm, fundal height at umbilicus Extremities: Present: normal Incision: Present: normal, dry, intact
[2017-10-04] MEDS: NORMODYNE PO SCH (09:26)
--- NOTE | 2017-10-04 14:02 | Discharge Summary ---
Providers - Providers Date of Admission: 09/29/17 11:29 Date of discharge: 10/04/17 Attending physician: VERITO SHAIKH 10/01/17 16:51 Consult to Business Project Manager [CONS] Routine Reason For Exam: Primary care physician: CYDNEY PETERSON Hospitalization Reason for admission: observation (pre-eclampsia) Delivery: Procedure: primary low transverse Incision: normal, dry, intact Other procedures: none complications: none Discharge diagnosis: IUP at term delivered [place] baby: male Hospital course: observation for elevated b/p, repeat c/s for pre-e, uncomplicated course Condition at discharge: Good Disposition: DC-01 TO HOME OR SELFCARE - Discharge Diagnoses (1) delivery delivered Status: Acute (2) Pre-eclampsia Status: Acute Plan - Discharge Medications Prescriptions: Ibuprofen [Motrin 800 MG tab] 800 mg PO TID PRN #30 tablet PRN Reason: Pain Labetalol [Normodyne TAB] 100 mg PO BID #60 tablet Lidocain2.5%/Prilocai2.5% [Emla] 5 gm TP ONCE #1 tube oxyCODONE /ACETAMINOPHEN [Percocet 5/325 mg] 1 - 2 tab PO Q4HR PRN #30 tablet PRN Reason: Pain - Provider Discharge Summary Activity: routine, no sex for 6 weeks, no heavy lifting 4 weeks, no strenuous exercise Diet: routine Instructions: routine Additional instructions: [] Smoking cessation referral if applicable(refer to patient education folder for contact #) [] Refer to [facility] Booklet Call your doctor immediately for: * Fever > 100.5 * Heavy vaginal bleeding ( >1 pad per hour) * Severe persistent headache * Shortness of breath * Reddened, hot, painful area to leg or breast * Drainage or odor from incision. * Keep incision clean and dry at all times and follow doctor's instructions regarding bathing/showering - Follow up plan Follow up: CYDNEY PETERSON MD [Primary Care Provider] - 7 Days (Congratulations! Please call [phone] to schedule your incision check and your son's circumcision in 1 week. Bring EMLA cream to your son's appointment and await further instructions. Call for any questions or concerns. Call for any headach, changes in your vision or pain in your upper abdomen. ) Forms: [facility] Discharge Summary
[2017-10-04 19:07] VITALS: BP 141/76
== END 2017-10-04 17:32 | disposition home or self-care (01) | DRG 765 ==
LOC: TRG 10:13 → LD 10:16 → TRG 10:43 → LD 11:29 → OB 10-01 16:50
PROVIDERS: ADMIT Obstetrics & Gynecology; ATTEND Obstetrics & Gynecology
PROC: 10D00Z1 Extraction of Products of Conception, Low, Open Approach (ICD-10-PCS; principal; 2017-10-01)
PROC: 0UCC0ZZ Extirpation of Matter from Cervix, Open Approach (ICD-10-PCS; 2017-10-01)
PROC: 3E0234Z Introduction of Serum, Toxoid and Vaccine into Muscle, Percutaneous Approach (ICD-10-PCS; 2017-10-01)
PROC: 0DNW0ZZ Release Peritoneum, Open Approach (ICD-10-PCS; 2017-10-01)
DX: O34.211 Maternal care for low transverse scar from previous cesarean delivery (principal); O34.33 Maternal care for cervical incompetence, third trimester; O98.12 Syphilis complicating childbirth; O14.94 Unspecified pre-eclampsia, complicating childbirth; Z3A.35 35 weeks gestation of pregnancy; Z37.0 Single live birth; Z23 Encounter for immunization; O36.5930 Maternal care for other known or suspected poor fetal growth, third trimester, not applicable or unspecified
CPT/HCPCS: 36415; 76815; 76819; 76820; 80053; 81001; 83615; 83735; 84156; 84550; 85014; 85018; 85025; 86850; 86900; 86901; 88307; 99211; A6250; C1765; C9250; G0463; J0690; J0702; J1885; J2274; J2300; J2405; J2590; J2765; J3010; J3475; J7030; J7121